=== PATIENT | male | born 1965 | race Caucasian/White ===

== ENCOUNTER 2024-10-26 21:26 | Emergency (ER) | payer MEDICAID ==
[~2024-10-26] VITALS: Ht 180.3 cm; Wt 77.0 kg
[2024-10-26] MEDS ORDERED: SODIUM CHLORIDE 0.9% 1,000 ML IV STA (22:22)
[2024-10-26] MEDS ORDERED: PROMETHAZINE HCL 25 MG/ML AMP IV ONE (22:25)
[2024-10-26] MEDS ORDERED: KETOROLAC TROMETHAMINE 30 MG/ML SDV IV ONE (22:25)
[2024-10-26 23:01] LABS: BASO% 0.2 % (0-3); HEMATOCRIT 47.9 % (39.0-50.0); HEMOGLOBIN 16.2 g/dl (14.0-18.0); IMMATURE GRANULOCYTES 0.2 % (0.0-5.0); LYMPH% 32.3 % (15-41); MEAN CELL VOLUME 92.1 fL CALC (80.0-100.0); MEAN CORPUSCULAR HGB 31.2 pG CALC (26.0-32.0); MEAN CORPUSCULAR HGB CONC 33.8 g/dL CAL (32.0-36.0); NEUT# 2.85 thou/uL (1.82-7.42); NEUT% 54.3 % (42-76); RED BLOOD COUNT 5.2 mill/uL (4.70-6.10); RED CELL DISTRI WIDTH 12.4 % (11.5-15.5)
[2024-10-26 23:14] LABS: ALBUMIN 4.5 g/dL (3.2-5.0); BILIRUBIN, TOTAL 0.8 mg/dL (0.2-1.3); CREATININE 0.9 mg/dL (0.7-1.3); POTASSIUM 3.6 mmol/l (3.5-5.1); TOTAL PROTEIN 7.5 g/dL (6.3-8.2)
[2024-10-26] MEDS ORDERED: LACTATED RINGER'S 1,000 ML IV ONE (23:45)
[2024-10-27] MEDS ORDERED: PROMETHAZINE HY25 M1 PO (00:08)
[2024-10-27 00:50] VITALS: BP 131/89
== END 2024-10-27 00:48 | disposition home or self-care (01) ==
LOC: ED 21:26
PROVIDERS: Family Medicine
DX: R11.2 Nausea with vomiting, unspecified (principal); G89.29 Other chronic pain; M54.9 Dorsalgia, unspecified; F17.210 Nicotine dependence, cigarettes, uncomplicated
CPT/HCPCS: J2550